=== PATIENT | female | born 2000 | race Caucasian/White ===

== ENCOUNTER 2019-03-15 02:53 | Inpatient (IN) | payer OTHER ==
[2019-03-15] MEDS ORDERED: ACETAMINOPHEN 650 MG SUPP PR (03:30)
[2019-03-15] MEDS ORDERED: NACL 0.9% 3 ML SYG IV (03:30)
[2019-03-15] MEDS ORDERED: ONDANSETRON 4 MG INJ IV (03:30)
[2019-03-15] MEDS ORDERED: ALBUTEROL/IPRATROPIUM (NEB) 3 ML AMP HHN (03:30)
[2019-03-15] MEDS: DEXTROSE 5%-0.45% NACL 1,000 ML IV ×4 (03:47→21:16)
[2019-03-15] MEDS: PANTOPRAZOLE 40 MG INJ IV (06:01)
[2019-03-15] MEDS: morphine 2 MG INJ IV ×3 (08:27→20:03)
[2019-03-15 08:39] LABS: ADD MAN DIFF? NO
[2019-03-15 08:48] LABS: WHITE BLOOD COUNT 9.1 10^3/ul (4.8-10.8)
[2019-03-15 08:48] LABS: BASOPHIL # 0.1 10^3/ul (0.0-0.1); BASOPHILS % 0.5 % (0.0-2.0); EOSINOPHILS # 0.4 10^3/ul (0.0-0.5); EOSINOPHILS % 4.2 % (0.0-7.0); HEMATOCRIT 38.8 % (37.0-47.0); HEMOGLOBIN 12.1 g/dl (12.0-16.0); LYMPHOCYTES # 1.8 10^3/ul (0.8-2.9); MEAN CORPUSCULAR HEMOGLOBIN 24.2 pg (29.0-33.0); MEAN CORPUSCULAR HGB CONC 31.2 g/dl (32.0-37.0); MEAN CORPUSCULAR VOLUME 77.4 fl (72.0-104.0); MEAN PLATELET VOLUME 9.9 fl (7.4-10.4); MONOCYTE # 0.6 10^3/ul (0.3-0.9); MONOCYTES % 6.2 % (0.0-13.0); NEUTROPHIL # 6.2 10^3/ul (1.6-7.5); NEUTROPHILS % 68.6 % (30.0-74.0); PLATELET COUNT 394 10^3/UL (140-415); RED BLOOD COUNT 5.01 10^6/ul (4.20-5.40); RED CELL DISTRIBUTION WIDTH 14.5 % (11.5-14.5)
[2019-03-15] MEDS: FLUTICASONE 0.05% 16 GM NAS SPRAY NASAL (09:00)
[2019-03-15 09:01] LABS: ALANINE AMINOTRANSFERASE 33 IU/L (13-69); ALBUMIN 3.6 g/dl (3.3-4.9); ALBUMIN/GLOBULIN RATIO 1.33; ALKALINE PHOSPHATASE 70 IU/L (42-121); ANION GAP 7 (5-13); ASPARTATE AMINO TRANSFERASE 34 IU/L (15-46); BILIRUBIN,INDIRECT 1.6 mg/dl (0-1.1); BILIRUBIN,TOTAL 1.6 mg/dl (0.2-1.3); BLOOD UREA NITROGEN 15 mg/dl (7-20); CALCIUM 8.7 mg/dl (8.4-10.2); CARBON DIOXIDE 26 mmol/L (21-31); CHLORIDE 106 mmol/L (97-110); CHOL/HDL RATIO 5.7 RATIO; CHOLESTEROL 183 mg/dl (100-200); CREATININE 0.81 mg/dl (0.44-1.00); Estimated GFR > 60 mL/min (>60); GLUCOSE 101 mg/dl (70-220); HDL CHOLESTEROL 32 mg/dl (33-83); LDL CHOLESTEROL,CALCULATED 116 mg/dl; LIPASE 562 U/L (23-300); MAGNESIUM 2.3 mg/dl (1.7-2.5); PHOSPHORUS 4.7 mg/dl (2.5-4.9); POTASSIUM 3.8 mmol/L (3.5-5.1); SODIUM 139 mmol/L (135-144); TOTAL PROTEIN 6.3 g/dl (6.1-8.1); TRIGLYCERIDES 177 mg/dl (0-149)
[2019-03-15 09:02] LABS: HEMOGLOBIN A1C 5.6 % (0-5.9)
[2019-03-15] MEDS: KETOROLAC 30 MG INJ IV (13:48)
[2019-03-16] MEDS: DEXTROSE 5%-0.45% NACL 1,000 ML IV (05:33)
[2019-03-16 07:41] LABS: ADD MAN DIFF? NO
[2019-03-16 07:52] LABS: WHITE BLOOD COUNT 8.9 10^3/ul (4.8-10.8)
[2019-03-16 07:52] LABS: BASOPHIL # 0.1 10^3/ul (0.0-0.1); BASOPHILS % 0.6 % (0.0-2.0); EOSINOPHILS # 0.5 10^3/ul (0.0-0.5); EOSINOPHILS % 5.5 % (0.0-7.0); HEMOGLOBIN 12.7 g/dl (12.0-16.0); LYMPHOCYTES # 1.6 10^3/ul (0.8-2.9); LYMPHOCYTES % 18.1 % (18.0-55.0); MEAN CORPUSCULAR HEMOGLOBIN 23.9 pg (29.0-33.0); MEAN CORPUSCULAR VOLUME 77.2 fl (72.0-104.0); MEAN PLATELET VOLUME 10.1 fl (7.4-10.4); MONOCYTE # 0.5 10^3/ul (0.3-0.9); MONOCYTES % 5.1 % (0.0-13.0); NEUTROPHIL # 6.2 10^3/ul (1.6-7.5); NEUTROPHILS % 70.1 % (30.0-74.0); PLATELET COUNT 415 10^3/UL (140-415); RED BLOOD COUNT 5.31 10^6/ul (4.20-5.40); RED CELL DISTRIBUTION WIDTH 14.2 % (11.5-14.5)
[2019-03-16 08:07] LABS: ANION GAP 5 (5-13); BLOOD UREA NITROGEN 9 mg/dl (7-20); CALCIUM 8.9 mg/dl (8.4-10.2); CARBON DIOXIDE 29 mmol/L (21-31); CHLORIDE 106 mmol/L (97-110); CREATININE 0.76 mg/dl (0.44-1.00); Estimated GFR > 60 mL/min (>60); GLUCOSE 99 mg/dl (70-220); MAGNESIUM 2.1 mg/dl (1.7-2.5); PHOSPHORUS 4.1 mg/dl (2.5-4.9); SODIUM 140 mmol/L (135-144)
[2019-03-16] MEDS: FAMOTIDINE 20 MG INJ IV (08:41)
[2019-03-16] MEDS: FLUTICASONE 0.05% 16 GM NAS SPRAY NASAL (08:41)
[2019-03-16 11:16] LABS: LIPASE 434 U/L (23-300)
== END 2019-03-16 18:20 | disposition home or self-care (01) | DRG 440 ==
LOC: 5EC 02:53
DX: K85.90 Acute pancreatitis without necrosis or infection, unspecified (principal); E66.9 Obesity, unspecified; Z68.36 Body mass index [BMI] 36.0-36.9, adult
CPT/HCPCS: 74181; 80048; 80053; 80061; 83036; 83690; 83735; 84100; 84443; 85025